=== PATIENT | male | born 1960 | race Caucasian/White ===

== ENCOUNTER 2017-09-06 06:13 | Observation (INO) | payer BC ==
[~2017-09-06 06:13] MED LIST: Buffered Lidocaine 0.9% SYRIN* 5 ML/SYR SYRINGE INTRADERM ONE; Dexamethasone IV* 4 MG/ML 1 ML (4 MG) IV SLOW PU ONE; Levalbuterol 0.63MG/3ML NEB* UNIT OF USE INH ONE
[2017-09-06] MEDS ORDERED: Levalbuterol 0.63MG/3ML NEB* UNIT OF USE INH ONE (06:59)
[2017-09-06] MEDS ORDERED: Dexamethasone IV* 4 MG/ML 1 ML (4 MG) ONE (06:59)
[2017-09-06] MEDS ORDERED: Clindamycin 900 MG IVPREMIX(* 900 MG/50 ML SDV IV ONE (06:59)
[2017-09-06] MEDS ORDERED: Lidocaine 1% MPF wEPI 200,000* 30 ML SDV ONE (07:06)
[2017-09-06] MEDS ORDERED: Thrombin 5,000 UNITS* 1 APPLIC KIT - topical use - TOPICAL ONE (07:06)
[2017-09-06] MEDS ORDERED: Bacitracin IV* 50,000 UNITS INJ ONE (07:06)
[2017-09-06] MEDS ORDERED: Lidocaine 2% PF * 5 ML VIAL ONE (07:10)
[2017-09-06] MEDS ORDERED: Propofol* 10 MG/ML 20 ML BTL IV PUSH ONE (07:10)
[2017-09-06] MEDS ORDERED: Midazolam* 1 MG/ML 2 ML VIAL (2 MG) ONE (07:11)
[2017-09-06] MEDS ORDERED: fentaNYL* 50 MCG/ML 2 ML VIAL (100 MCG VIAL) ONE ×3 (07:11→10:04)
[2017-09-06] MEDS ORDERED: Rocuronium* 10 MG/ML VIAL ONE (07:13)
[2017-09-06] MEDS ORDERED: Naloxone* 0.4 MG/ML 1 ML VIAL IV PRN (07:50)
[2017-09-06] MEDS ORDERED: Acetaminophen IV 1GM/100ML * 1,000 MG/100 ML VIAL IVPB ONE (07:50)
[2017-09-06] MEDS ORDERED: PROCHLORPERAZINE INJ 5 MG/ML 2 ML VIAL IV PRN (07:50)
[2017-09-06] MEDS ORDERED: HYDROmorphone INJ* 1 MG/ML CARPUJECT SYRINGE IV PRN (07:50)
[2017-09-06] MEDS ORDERED: Ondansetron INJ* 2 MG/ML VIAL IV PRN ×2 (07:50→09:21)
[2017-09-06] MEDS ORDERED: Ketorolac INJ* 30 MG/ML 1 ML VIAL ONE (08:56)
[2017-09-06] MEDS ORDERED: Acetaminophen TAB* 325 MG PO PRN (09:21)
[2017-09-06] MEDS ORDERED: HYDROcodone/ACETAMIN 5-325 MG* 1 TAB PO PRN (09:21)
[2017-09-06] MEDS ORDERED: Magnesium Hydroxide LIQ* 30 ML UDC PO PRN (09:21)
[2017-09-06] MEDS ORDERED: Mouth Piece, Nicotine* 1 EACH CARTRIDGE INH PRN (09:23)
[2017-09-06] MEDS ORDERED: Morphine INJ* 4 MG/ML 1 ML CARPUJECT IV PRN ×2 (09:23→09:31)
[2017-09-06] MEDS ORDERED: Acetaminophen IV 1GM/100ML * 100 ML ONE (09:58)
[2017-09-06] MEDS ORDERED: oxyCODONE TAB* 5 MG TAB ONE (09:58)
[2017-09-06] MEDS: oxyCODONE TAB* 5 MG TAB PO PRN ×2 (10:00→10:01)
[2017-09-06] MEDS: fentaNYL* 50 MCG/ML 2 ML VIAL (100 MCG VIAL) IV PRN ×2 (10:05→10:12)
[2017-09-06] MEDS ORDERED: Morphine VIAL* 4 MG/ML VIAL (1 ml vial) IV ONE (11:27)
--- NOTE | 2017-09-06 11:35 | RAD ---
INDICATION: Left lumbar discectomy L3-L4. COMPARISON: There are no prior studies available for comparison. TECHNIQUE: A single crosstable lateral film of the lumbar spine was obtained in the operating room. FINDINGS: There are surgical instruments which project posterior to the L3-L4 disc and the L4 vertebra. IMPRESSION: INTRAOPERATIVE CONTROL FILMS.
[2017-09-06] MEDS ORDERED: Gabapentin CAP(*) 300 MG PO SCH (14:00)
[2017-09-06 15:40] VITALS: BP 112/62
[2017-09-07] MEDS ORDERED: Nicotine Patch Removal NOTE FOLLOW UP SCH (06:00)
[2017-09-07] MEDS ORDERED: amLODIPine TAB* 5 MG PO SCH (09:00)
[2017-09-07] MEDS ORDERED: Atorvastatin* 80 MG TAB PO SCH (09:00)
[2017-09-07] MEDS ORDERED: Omeprazole CAP* 20 MG PO SCH (09:00)
[2017-09-07] MEDS ORDERED: Nicotine PATCH 21 MG/24 HR* PATCH TRANSDERM SCH (09:00)
--- NOTE | 2017-09-17 08:56 | DS ---
DISCHARGE SUMMARY: DATE OF ADMISSION: 09/06/17 DATE OF DISCHARGE: 09/06/17 ATTENDING SURGEON: Garcia Hager MD * (DICTATED BY ELKIN YOUNG) DISCHARGE DIAGNOSES: 1. 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 2. Hypertension. 3. Mitral valve prolapse. 4. Hyperlipidemia. SPECIAL PROCEDURES: Lumbar diskectomy, L3-4 on the left. HOSPITAL COURSE: This 56-year-old male was seen in the office with a left- sided lumbar radiculopathy. He had undergone a lumbar diskectomy at L3-4 on the left with Dr. Weber on 06/03/17 and failed to improve postoperatively. Updated MR imaging showed either a recurrent or retained disk fragment at L3-4 on the left. The patient decided to proceed with surgical treatment again. On the day of admission, he was taken to surgery where under general anesthesia, a lumbar diskectomy at L3-4 on the left operation was carried out. Postoperatively, he was feeling well and ambulating independently. He was eating , drinking and voiding without difficulty. Pre-operative symptoms had resolved. On the day of surgery, he was discharged home. DISCHARGE MEDICATIONS: Elliott 5/325 mg 2 tabs by mouth every 4 hours as needed for pain. FOLLOWUP: The patient will be seen in the office in approximately 10 days for followup and staple removal. DISCHARGE INSTRUCTIONS: Wound care and activity level were discussed with the patient and information on this was provided. ELKIN YOUNG [id number]/[facility] #: [id number] MTDD
--- NOTE | 2017-09-22 05:32 | OP ---
DATE OF OPERATION: 09/06/17 - ROOM #342 DATE OF : 58 SURGEON: Garcia Hager MD [employer]: ELKIN Hi ANESTHESIA: General. PRE-OP DIAGNOSIS: Recurrent herniated nucleus pulposus, L3-4, on the left. POST-OP DIAGNOSIS: Recurrent herniated nucleus pulposus, L3-4, on the left. OPERATIVE PROCEDURE: Redo diskectomy, L3-4, on the left with microdissection. INDICATION: This patient has previously undergone removal of a far lateral disk herniation at L3-4 at the [facility]. Postoperatively, he experienced very little in the way of pain relief and repeat imaging suggested presence of continued nerve root compromise. DESCRIPTION OF PROCEDURE: After satisfactory general anesthesia was obtained, he was placed on the operating table in the prone position with the chest supported on the Lucio frame and the back slightly flexed. The lumbar region was then clipped, prepped, and draped in a sterile manner for lumbar laminectomy and his previous incision reopened. This was opened down to the level of the lumbar fascia and scar tissue with this tissue being dissected free from the posterior elements from L2 to L4. There was noted to be dense scar tissue in the region of his previous hemilaminectomy. For this reason, a decision was made to go into the L2-3 level and remove the superior aspect of the L3 lamina so that the L3 nerve root could be identified and traced down into the prior surgical field. After removing the remaining portion of the L3 lamina, the operating microscope was brought into the field and the remainder of the procedure was done under microscopic visualization. The L3 nerve root was followed down to the area of previous surgery. It was noted to be surrounded by abundant scar tissue as well as persistent fragments of disk material. The disk space itself was entered and cleared of any disk material projecting out laterally and from the interspace itself. At the conclusion of the decompression, the L3 and L4 nerve roots were noted to be free in their course. After ensuring adequate hemostasis, the wound was thoroughly irrigated after which a piece of Gelfoam was placed over the laminectomy defect. The fascia was then reapproximated with 0 Vicryl suture. The subcutaneous tissue was closed with 3-0 Vicryl suture and the skin closed with skin clips. The estimated blood loss was less than 50 cc and final sponge, padding, and needle counts were correct. The patient was taken to the recovery room, extubated, and in stable condition. [id number]/[facility] #: [id number] HAYDEE
== END 2017-09-06 17:04 | disposition home or self-care (01) ==
LOC: OR 06:13 → SSU 10:59
PROVIDERS: ADMIT Neurological Surgery; ATTEND Neurological Surgery
PROC: 0SB20ZZ Excision of Lumbar Vertebral Disc, Open Approach (ICD-10-PCS; principal; 2017-09-06 07:30)
DX: M51.26 Other intervertebral disc displacement, lumbar region (principal); M79.605 Pain in left leg; I10 Essential (primary) hypertension; I34.1 Nonrheumatic mitral (valve) prolapse; E78.5 Hyperlipidemia, unspecified
CPT/HCPCS: 72100; A9270-GY; G0378; J1100; J1885; J2001; J2250; J2270; J2704; J3010